=== PATIENT | female | born 1965 ===

== ENCOUNTER 2018-12-02 15:13 | Emergency (ER) | payer OTHER ==
[2018-12-02 15:33] VITALS: BP 114/64; PULSE 64; RESP 18; TEMP 98.4; O2SAT 98
--- NOTE | 2018-12-02 16:24 | C.PDOC ---
History Of Present Illness 33 y/o female comes in to ED complaining of right leg pain for the past year, worsening for the last few days. 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 Patient reports pain worsens with ambulation. Denies chest pain, SOB, leg swelling, or other symptoms. Patient reports she drinks occasionally. Medical problems unclear due to poor history. Patient has never been here before so there are no old records to review. Time Seen by Provider: 12/02/18 15:37 Chief Complaint (Nursing): Lower Extremity Problem/Injury History Per: Patient History/Exam Limitations: no limitations Onset/Duration Of Symptoms: Days Current Symptoms Are (Timing): Still Present Past Medical History Reviewed: Historical Data, Nursing Documentation, Vital Signs Vital Signs: Last Vital Signs Temp 98.4 F 12/02/18 15:23 Pulse 64 12/02/18 15:23 Resp 18 12/02/18 15:23 BP 114/64 12/02/18 15:23 Pulse Ox 98 12/02/18 15:23 Family History: States: No Known Family Hx - Social History Hx Alcohol Use: Yes Hx Substance Use: No - Immunization History Hx Tetanus Toxoid Vaccination: No Hx Influenza Vaccination: No Hx Pneumococcal Vaccination: No Review Of Systems Constitutional: Negative for: Fever, Chills ENT: Negative for: Nose Congestion Cardiovascular: Negative for: Chest Pain Respiratory: Negative for: Shortness of Breath Gastrointestinal: Negative for: Nausea, Vomiting, Abdominal Pain Musculoskeletal: Positive for: Leg Pain (right) Skin: Negative for: Rash Physical Exam - Physical Exam Appears: Non-toxic, No Acute Distress Skin: Warm, Dry Head: Atraumatic, Tenderness Eye(s): bilateral: Normal Inspection Oral Mucosa: Moist Neck: Supple Cardiovascular: Rhythm Regular, No Murmur Respiratory: Normal Breath Sounds, No Rales, No Rhonchi, No Wheezing Gastrointestinal/Abdominal: Soft, No Tenderness Extremity: Normal ROM (of hips), No Swelling (of leg), Other (covered in excoriations; right posterior calf tenderness; no redness or warmth, no signs of infection) Pulses: Left Dorsalis Pedis: Normal, Right Dorsalis Pedis: Normal Neurological/Psych: Oriented x3, Normal Speech Gait: Steady ED Course And Treatment O2 Sat by Pulse Oximetry: 98 (RA) Pulse Ox Interpretation: Normal Medical Decision Making Medical Decision Making: Plan: --Tylenol PO Patient with posterior calf pain, however given poor history and questionable cancer/tumor in right extremity. Patient has a drinking history and length of pain seems unsafe to give lovenox. Patient is advised to return to ER at 8am tomorrow for doppler US. Patient understands and agrees. Disposition Counseled Patient/Family Regarding: Diagnosis, Need For Followup - Disposition Disposition: HOME/ ROUTINE Disposition Time: 16:22 Condition: GOOD Additional Instructions: Return to ER tomorrow, Monday morning, to get a doppler sonogram of right lower leg to check for a blood clot. Return to ER sooner for any chest pain or shortness of breath. Forms: [facility] ([place]), General Discharge Instructions - Clinical Impression Clinical Impression: Right leg pain - PA / [employer] / Resident Statement MD/DO has reviewed & agrees with the documentation as recorded. - Scribe Statement The provider has reviewed the documentation as recorded by the Lanibchance Villegas All medical record entries made by the Lanibchance were at my direction and personally dictated by me. I have reviewed the chart and agree that the record accurately reflects my personal performance of the history, physical exam, medical decision making, and the department course for this patient. I have also personally directed, reviewed, and agree with the discharge instructions and disposition.
== END 2018-12-02 16:26 | disposition home or self-care (01) ==
LOC: C.ER 15:13
DX: M79.604 Pain in right leg (principal)